=== PATIENT | male | born 1940 | race Caucasian/White ===

== ENCOUNTER 2017-06-21 04:11 | Emergency (ER) | payer OTHER ==
[~2017-06-21] VITALS: Ht 177.8 cm; Wt 75.7 kg
[2017-06-21 04:15] VITALS: TEMP 37; Ht 177.8 cm; Wt 75.7 kg
[2017-06-21] MEDS ORDERED: CEFAZOLIN SOD 1000MG/55 ML D5W IV STA (04:18)
[2017-06-21] MEDS ORDERED: DIPHTHERIA/TETANUS/PERTUSSIS 0.5 ML SYR/VIAL IM. ONE (04:30)
[2017-06-21] MEDS ORDERED: OPTIRAY 320 IV PRN (04:30)
[2017-06-21] MEDS ORDERED: LISI-729 PO (04:34)
[2017-06-21] MEDS ORDERED: HYZ/50125 PO (04:34)
[2017-06-21] MEDS ORDERED: METF-384 PO (04:34)
[2017-06-21 04:37] LABS: BASO % 0.2 %; BASO ABS # 0.02 K/uL (0-0.2); COMPLETE YES; EOS % 4.4 %; IG% 0.3 %; LYMPH % 22.5 %; LYMPH ABS # 2.15 K/uL (1.2-3.4); MEAN CELL VOLUME 89.8 fL (80-100); MEAN CORPUSCULAR HEMOGLOBIN 30.8 pg (25-34); MEAN CORPUSCULAR HGB CONC 34.3 g/dl (32-36); MEAN PLATELET VOLUME 9.9 fL (7.4-10.4); MONO % 8.3 %; NEUT % 64.3 %; PLATELET COUNT 213 K/uL (130-400); RED BLOOD COUNT 4.12 M/uL (4.7-6.1); WHITE BLOOD COUNT 9.54 K/uL (4.8-10.8)
[2017-06-21 04:43] LABS: ISTAT CREATININE 1.4 mg/dl (0.6-1.3); ISTAT HEMOGLOBIN 12.6 g/dl (14.0-18.0); ISTAT IONIZED CALCIUM 1.25 mmol/l (1.12-1.32)
[2017-06-21 04:46] LABS: INR 0.9 (0.9-1.1); PROTHROMBIN TIME (PATIENT) 9.8 SECONDS (9.0-12.0)
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
[2017-06-21] MEDS ORDERED: SODIUM CHLORIDE 0.9% 1000ML 1,000 ML IV STA (04:50)
[2017-06-21 04:58] LABS: BLOOD UREA NITROGEN 24 mg/dl (7-18); BUN/CREATININE RATIO 16.2 (10-20); CALCIUM 9.2 mg/dl (8.5-10.1); CARBON DIOXIDE 28 mmol/L (21-32); CHLORIDE 103 mmol/L (98-107); GLUCOSE 174 mg/dl (70-99); POTASSIUM 3.5 mmol/L (3.5-5.1); SODIUM 137 mmol/L (136-145)
[2017-06-21] MEDS ORDERED: XYLOCAINE 1%/SOD BICARB 20 ML VIAL INFIL ONE (05:30)
[2017-06-21 06:10] LABS: URINE APPEARANCE CLEAR (CLEAR); URINE BILIRUBIN NEG (NEG); URINE COLOR YELLOW; URINE EPITHELIAL CELL AUTO 0-5 /lpf (0-5); URINE NITRITE NEG (NEG); URINE PH 5.5 (4.5-7.5); URINE SPECIFIC GRAVITY 1.041 (1.000-1.030); UROBILINOGEN NEG (NEG); ZZUR CULT IF INDIC CLEAN CATCH NO
[2017-06-21 06:12] LABS: MANUAL MICROSCOPIC REQUIRED? NO; REVIEW REQ? NO
[2017-06-21] MEDS ORDERED: CEPH500C PO (06:16)
[2017-06-21] MEDS ORDERED: OXYC1TAB3 PO (06:18)
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
[2017-06-21] MEDS ORDERED: ONDANSETRON INJ 2 MG/ML 2 ML VIAL IV STA (06:56)
[2017-06-21] MEDS ORDERED: MoRPHine SULFATE 4 MG/ML 1 ML CARP\\VIAL IV STA (06:56)
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
[2017-06-21 10:58] VITALS: BP 188/121; PULSE 78; O2SAT 96
== END 2017-06-21 11:01 | disposition home or self-care (01) ==
LOC: EDBD 04:11 → C.EDB 04:13
DX: V49.40XA Driver injured in collision with unspecified motor vehicles in traffic accident, initial encounter (principal); S01.112A Laceration without foreign body of left eyelid and periocular area, initial encounter; S06.370A Contusion, laceration, and hemorrhage of cerebellum without loss of consciousness, initial encounter; S02.2XXA Fracture of nasal bones, initial encounter for closed fracture; Z23 Encounter for immunization; S01.21XA Laceration without foreign body of nose, initial encounter; R07.9 Chest pain, unspecified; R10.9 Unspecified abdominal pain; N28.9 Disorder of kidney and ureter, unspecified

== ENCOUNTER 2017-06-22 10:51 | Emergency (ER) | payer OTHER ==
[~2017-06-22] VITALS: Ht 180.3 cm; Wt 74.6 kg
[~2017-06-22 10:51] MED LIST: CEPH500C PO; HYZ/50125 PO; LISI-729 PO; METF-384 PO; OXYC1TAB3 PO
[2017-06-22 11:18] VITALS: TEMP 36.8; Ht 180.3 cm; Wt 74.6 kg
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
[2017-06-22 13:20] VITALS: BP 157/81; PULSE 84; O2SAT 96
== END 2017-06-22 13:21 | disposition home or self-care (01) ==
LOC: C.EDB 10:53 → C.EDD 13:21
DX: S09.90XD Unspecified injury of head, subsequent encounter (principal); T14.8 Other injury of unspecified body region; V89.9XXD Person injured in unspecified vehicle accident, subsequent encounter; Z87.442 Personal history of urinary calculi; Z87.891 Personal history of nicotine dependence; Z79.899 Other long term (current) drug therapy